=== PATIENT | male | born 1955 | race Caucasian/White ===

== ENCOUNTER → 2021-04-02 16:57 | Outpatient (BNVA) | payer MEDICARE, SELFPAY | PROVIDERS: Family Provider Family Medicine; PCP Family Medicine; Visit Provider Podiatrist Foot & Ankle Surgery | DX: L97.512 Non-pressure chronic ulcer of other part of right foot with fat layer exposed (principal); M20.41 Other hammer toe(s) (acquired), right foot; M20.42 Other hammer toe(s) (acquired), left foot; E11.42 Type 2 diabetes mellitus with diabetic polyneuropathy; Z79.4 Long term (current) use of insulin; L60.3 Nail dystrophy; L84 Corns and callosities; M21.861 Other specified acquired deformities of right lower leg; M20.31 Hallux varus (acquired), right foot; M20.32 Hallux varus (acquired), left foot | CPT/HCPCS: 87635 ==

== ENCOUNTER 2021-04-06 07:02 | Day surgery (SDC) | payer MEDICARE, SELFPAY ==
[2021-04-05 16:06] VITALS: BMI 37.5
[2021-04-06] VITALS (7 sets, daily range): BP systolic 92–153; BP diastolic 53–93; PULSE 48–58; RESP 16–18; TEMP 36.1–36.9; O2SAT 94–98
--- NOTE | 2021-04-06 08:06 | ANES.PREANE2 ---
Pre-Anesthetic Assessment Pre-Anesthetic Assessment: Height/Weight: Height 1.91 m Weight 136.078 kg Temp Pulse Resp BP Pulse Ox 98.4 F 52 L 18 153/83 96 04/06/21 07:25 04/06/21 07:25 04/06/21 07:25 04/06/21 07:25 04/06/21 07:25 Preop Diagnosis: Equinus, hammertoe and hallux malleus right Proposed Procedure: Operation Date: 04/06/21 08:20 Proposed Procedures p Gastrocnemius Recession 2nd/3rd right toes 44006/67917/39393/m20.41/m20.42/m20.32(Right) - MARIKA Marquez Hitchcock tendon suspension(Right) - MARIKA Marquez Hammertoe Correction(Right) - Willy Maradiaga DPM Was Beta Denise taken within 24 hours: Yes Was Clonidine taken within 24 hours: N/A Last intake: Intake Last Liquid Date 04/05/21 Last Liquid Time 23:55 Last Solid Date 04/05/21 Last Solid Time 20:00 Social: Social History: No alcohol and No tobacco Exam: Pre-Anes Outpt Exam: alert, oriented x 3, clear to auscultation bilaterally and regular rate & rhythm Airway: Submandibular: WNL Cervical ROM: WNL MP: 2 Dentition: Chipped Additional comments: Poor dentition, multiple cracked and chipped CV/HEM: CV/HEM: Arrythmia and HTN Metabolic: Metabolic: DM and Morbid obesity Musc/skel: Musc/skel: OA/DJD Comments: Chronic pain Anesthetic Plan: Anesthesia: MAC Other: Had discussed popliteal blk if gastoc recession necessary Risk of > 500 ml blood loss (7ml/kg in children): No PFSH Anesthesia PFSH: Medical History Amputation of fifth toe of left foot Diabetes mellitus Hammer toes, bilateral Surgical History Hx of amputation of foot Family History Mother Diabetes Hypertension Stroke Social History Alcohol intake: never Current occupational status: disabled Data Anesthesia Cardiac Studies: No Data to Display
--- NOTE | 2021-04-06 08:12 | P.HPUD_ITS ---
Surgery/Procedure H&P Update DATE OF PROCEDURE: April 06, 2021 DATE H&P PERFORMED: 04/02/21 H&P UPDATE INFORMATION: I have reviewed H&P completed within last 30 days, I have examined patient prior to procedure, No changes to prior documentation and H&P is in [facility] EMR on date indicated PREOP DIAGNOSIS: Equinus, hammertoe and hallux malleus right PLANNED PROCEDURE: Operation Date: 04/06/21 08:20 Proposed Procedures p Gastrocnemius Recession 2nd/3rd right toes 84198/40304/35201/m20.41/m20.42/m20.32(Right) - Willy Maradiaga DPM s Hitchcock tendon suspension(Right) - Willy Maradiaga DPM s Hammertoe Correction(Right) - Willy Maradiaga DPM
[2021-04-06] MEDS: sodium chloride 0.9% 1,000 ML 30 ML IV (08:18)
[2021-04-06] MEDS: scopolamine 1.5 Patch 1 PATCH TRANSDERMA (08:18)
[2021-04-06] MEDS: ceFAZolin 3,000 MG in sodium chloride 0.9% (100 ml) 100 ML 200 MG IV (08:24)
[2021-04-06 08:27] LABS: Glucose Point of Care 138 mg/dL (70-110)
[2021-04-06] MEDS: lidocaine 2% INJ 20 mL INJECTION (09:00)
--- NOTE | 2021-04-06 10:00 | P.OP_ITS ---
Operative Report Date of procedure: April 06, 2021 Pre-op Diagnosis: Hallux malleus and hammertoe deformities second and third right foot. Post-op diagnosis: same Procedure Done: Right hallux interphalangeal joint arthrodesis with extensor pollicis longus tendon transfer, right second and third hammertoe correction. CPT codes 28283 and 10793 x2 Implants: [place] 28 4 mm screw partially threaded and cannulated. [place] 28 4.5 mm interference screw, 2 mm screws for hammertoe second and third right foot, 4-0 Vicryl, 4-0 nylon. Specimens removed/disposition: None Pathology: none sent Surgeon: Willy Maradiaga D.P.M. Dental Hygienist: Johnny Anesthesia: MAC Estimated blood loss: 10 Tourniquet time: 73 IV fluids: None Urine output: None Complications: None Condition: stable Disposition: PACU Brief History: Patient has had recalcitrant hemorrhagic callus and wound formation at the right second hammertoe distal tuft of the toe due to nonreducible hammertoe deformity, hemorrhagic callus at the distal tuft of the right great toe and third toe would like to be proactive in getting the surgically corrected as he has had history of infections, partial amputation and would like to prevent future issues potentially by correcting his digital deformities on the right foot at this time. He has been wearing diabetic shoes with molded inserts, has been utilizing hammertoe cushion pads and continues to have reoccurring hemorrhagic calluses. Patient wishes to proceed. Has been n.p.o. since midnight, Covid screening negative. Risks include but are not limited to pain, bleeding, numbness, infection, hardware failure, hardware rotation, delayed union, malunion, nonunion, altered mechanics and need for further surgical intervention. No guarantees written, expressed or implied. Procedure: Under mild sedation the patient was brought to the operating room and remained on the gurney in supine position. A timeout was performed. Anesthesia was then administered by the anesthesia service. Local anesthesia injected by myself consisting of 30 cc of one-to-one mixture 0.5% Marcaine plain and 1% lidocaine plain in a right Woo block and second and third ray block fashions. Well-padded pneumatic tourniquet applied to the right ankle. Right lower extremity was then scrubbed, prepped and draped utilizing normal aseptic technique. Right foot was then exanguinated with an Esmarch bandage and a barbara rniquet inflated to 250 mmHg. Attention was directed to the right dorsal foot where a semielliptical converging incision was performed directly over the right hallux interphalangeal joint transversely with a skin bridge being excised and passed from operative field. Access was gained to the hallux interphalangeal joint utilizing a transverse capsulotomy and the base of the distal phalanx and head of the proximal phalanx were transected and passed from the operative field. Next utilizing standard AO technique a hallux interphalangeal arthrodesis was performed utilizing a 4.0 mm [place] 28 headed partially-threaded cannulated screw with excellent bony apposition and compression noted. Incision was flushed with saline solution and closed with 4-0 Vicryl at subcutaneous tissue and 4-0 nylon at skin. Attention was then directed to the metaphyseal flare of the first metatarsal where a linear longitudinal incision was made medial and parallel to the extensor houses longus tendon which was identified and retracted proximally, next utilizing a drill hole through the metaphyseal flare of the first metatarsal a whipstitch was performed of the extensor houses longus tendon and the Ángel needle utilized in the passage through the drill hole and interference screw under tension the extensor houses longus tendon was transferred to the first metatarsal completing a Hitchcock tenosuspension. When loading the first ray that was rectus with a correction of the hallux malleus and a rectus first metatarsophalangeal joint. Incision was flushed with saline solution and closed in a layered fashion with 4-0 Vicryl at subcutaneous tissue and 4-0 nylon at skin. Attention was then directed to the dorsal aspect of the second and third toes of the right foot where a linear longitudinal incisions were performed over the level of the proximal interphalangeal joint. Dissection was carried down through skin and subcutaneous tissue to the layer of the extensor tendon which was transected at the level of the proximal interphalangeal joint both at the second and third toes of the right foot. Care was taken to retract and preserve neurovascular and tendinous structures. All bleeders were ligated and cauterized as necessary. A interphalangeal joint arthrodesis was then performed at the right second and third toes, the head of the proximal phalanx and base of the intermediate phalanx were denuded of articular surface, held rectus and fixated utilizing antegrade and retrograde technique with a double-ended trocar wire and [place] 28 2 mm screw with excellent bony apposition and compression noted at the right second and third toes. Incisions were flushed with saline solution extensor tendons were then reapproximated at the right second and third toes utilizing 4-0 Vicryl and skin closed with 4-0 nylon. Incision sites were dressed with Adaptic, sterile 4 x 4, Kerlix and Suleiman wrap and a cam boot was applied. Tourniquet was deflated and a prompt hyperemic response was noted to the distal digits of the right foot. Patient tolerated the procedure and anesthesia well and was transferred to the PACU with vital signs stable and vascular status intact. Following a period of postoperative monitoring patient will be discharged home. He may be protected weightbearing in the cam boot he is to elevate right foot while resting. Has postoperative care instructions and follow-up. He will contact me with any postoperative questions or concerns and was provided my cell phone number.
--- NOTE | 2021-04-06 10:01 | XR_ITS ---
WS: [id number] Exam: XR foot RT min 3V* [id number] Date/Time of Exam: 04/06/2021 10:01 AM Reason For Exam: Postop Hitchcock and hammertoe 2 and 3 right foot Comparison 07/20/2018. Orthopedic screws course through the long axes of the first through the third toes. Postoperative adilia nges in the adjacent soft tissues. There is bony sclerosis and marked degenerative change of the midf oot joints with flattening of the plantar arch which may indicate Charcot's arthropathy. Prominent ca lcaneal spurs. DJD of the subtalar joints. XR/XR foot RT min 3V* [id number] IMPRESSION: 1. Internal orthopedic fixation of the first through the third toe secondary to hammertoe correction. Alignment is satisfactory. 2. Bony sclerosis and advanced degenerative changes in the midfoot joints with flattening of the plantar arch. This may represent Charcot's arthropathy.
[2021-04-06 10:12] LABS: Glucose Point of Care 111 mg/dL (70-110)
--- NOTE | 2021-04-06 14:34 | ANE.PACU2 ---
Inpatient post-anesthesia follow up: Airway intact: Yes Vital signs: Temperature 98.0 F Pulse Rate 58 Respiratory Rate 16 Blood Pressure 128/93 Pulse Oximetry 97 Oxygen Delivery Me thod Room Air Oxygen Flow Rate 6 Fraction of Inspir ed Oxygen Hydration adequate: Yes Nausea and vomiting: No Pain level: 1 Mental status: Baseline
== END 2021-04-06 11:40 | disposition home or self-care (01) ==
PROVIDERS: PCP Family Medicine; Visit Provider Podiatrist Foot & Ankle Surgery
PROC: (CPT 28285; 2021-04-06 08:10)
PROC: (CPT 28285; 2021-04-06 08:10)
DX: M20.31 Hallux varus (acquired), right foot (principal); M20.41 Other hammer toe(s) (acquired), right foot; I10 Essential (primary) hypertension; E11.9 Type 2 diabetes mellitus without complications; E66.01 Morbid (severe) obesity due to excess calories; Z68.37 Body mass index [BMI] 37.0-37.9, adult; G89.29 Other chronic pain; Z82.49 Family history of ischemic heart disease and other diseases of the circulatory system; Z83.3 Family history of diabetes mellitus; Z82.3 Family history of stroke
CPT/HCPCS: 28285 ×2; 28760; 36416; 73630; 82962; 96365; C1713; J0690; J2704; J2795; J3010; J3490; J7030

== ENCOUNTER → 2021-04-18 09:58 | Outpatient (BNVA) | payer MEDICARE, SELFPAY | PROVIDERS: PCP Family Medicine; Visit Provider Podiatrist Foot & Ankle Surgery | DX: Z98.890 Other specified postprocedural states (principal) | CPT/HCPCS: 73630 ==

== ENCOUNTER → 2021-05-03 07:57 | Outpatient (BNVA) | payer MEDICARE, SELFPAY | PROVIDERS: PCP Family Medicine; Visit Provider Podiatrist Foot & Ankle Surgery | DX: Z98.890 Other specified postprocedural states (principal) | CPT/HCPCS: 73630 ==

== ENCOUNTER → 2021-05-15 09:36 | Outpatient (BNVA) | payer MEDICARE, SELFPAY | PROVIDERS: PCP Family Medicine; Visit Provider Podiatrist Foot & Ankle Surgery | DX: Z98.890 Other specified postprocedural states (principal); T84.84XA Pain due to internal orthopedic prosthetic devices, implants and grafts, initial encounter; Z01.818 Encounter for other preprocedural examination | CPT/HCPCS: 73630; 87635 ==

== ENCOUNTER 2021-05-18 07:43 | Day surgery (SDC) | payer MEDICARE, SELFPAY ==
[2021-05-17 12:26] VITALS: BMI 37.6
--- NOTE | 2021-05-18 | SCC_ITS ---
Procedure done: Deep hardware removal right foot 5 seconds of fluoroscopic guidance, for a cumulative dose of 0.1 mGy, was provided to Dr. Maradiaga by the radiology department. C-arm images of the RIGHT foot were saved for the patient's permanent record. CHED
[2021-05-18 07:55] VITALS: BP 147/79; PULSE 51; RESP 17; TEMP 36.7; O2SAT 96
--- NOTE | 2021-05-18 08:16 | ECG_ITS ---
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 Measurements Intervals [place] Rate: 50 P: 32 MI: 261 QRS: -18 QRSD: 96 T: 41 QT: 498 QTc: 455 Interpretive Statements SINUS BRADYCARDIA WITH FIRST DEGREE AV BLOCK LOW QRS VOLTAGE IN PRECORDIAL LEADS [QRS DEFLECTION < 1.0 mV IN CHEST LEADS] PROLONGED QT INTERVAL No previous ECG available for comparison Electronically Signed On 05-19-2021 9:02:[address] REPOR[address] by Ashley Scott M.D. [id number]
[2021-05-18] MEDS: sodium chloride 0.9% 1,000 ML 30 ML IV (08:18)
[2021-05-18] MEDS: scopolamine 1.5 Patch 1 PATCH TRANSDERMA (08:57)
[2021-05-18 08:59] LABS: Anion Gap 18.6 (5-19); Blood Urea Nitrogen 21 mg/dL (8-23); Calcium 9.9 mg/dL (8.5-10.5); Carbon Dioxide 21 mmol/L (22-29); Chloride 106 mmol/L (98-107); Glomerular Filtration Rate 112.8 mL/min (90-130); Glucose 124 mg/dL (65-115); Osmolality Calculated 296 mOsm/kg (285-295); Potassium 4.6 mmol/L (3.5-5.1); Sodium 141 mmol/L (136-145)
--- NOTE | 2021-05-18 09:02 | W.PM.OPSUD ---
Surgery/Procedure H&P Update DATE OF PROCEDURE: May 18, 2021 DATE H&P PERFORMED: 05/15/21 CHANGES TO PREVIOUS DOCUMENTATION: none PREOP DIAGNOSIS: Hammertoe right second and third toe, painful retained hardware right foot. PLANNED PROCEDURE: Operation Date: 05/18/21 09:40 Proposed Procedures p Hardware Removal right foot 98936/T84.84XA(Right) - Willy Maradiaga DPM
[2021-05-18] MEDS: ceFAZolin 3,000 MG in sodium chloride 0.9% (100 ml) 100 ML 200 MG IV (09:13)
[2021-05-18] MEDS: lidocaine 1% INJ 20 mL 15 ML XX (09:40)
[2021-05-18 09:43] VITALS: BP 95/53; PULSE 56; RESP 18; TEMP 36.1; O2SAT 97
--- NOTE | 2021-05-18 09:43 | PM.OP ---
Operative Report Date of procedure: May 18, 2021 Pre-op diagnosis: Painful retained hardware right foot. Post-op diagnosis: Same Procedure done: Deep hardware removal right foot Specimens removed/disposition: 2.0 mm [place] 28 screw Surgeon: Willy Maradiaga D.P.M. Entry Level Accountant: Selene Estimated blood loss: Less than 5 5 IV fluids: 0 Urine output: 0 Complications: None Findings: None Brief History: Hardware failure and painful hardware at the right second toe requiring removal as it is tenting the skin and had a failed cortex dorsally at the distal phalanx. Also has bent hardware at the right third toe from contusion. Patient is neuropathic does not remember hitting his foot but states that it is possible. Plan is hardware removal at the right second toe and a straightening of the right third toe if possible should there be failure of hardware this would necessitate hardware removal and replacement. Patient is agreeable wishes to proceed. Risks include pain, bleeding, numbness, infection, hardware failure, hardware rotation, delayed union, malunion, nonunion, recurrence of deformity altered mechanics, transfer pressure and transfer lesions need for further surgical intervention. Covid screen negative. Patient n.p.o. since midnight. Informed consent signed by patient and myself. No guarantees written, expressed or implied. Patient wishes to proceed. Procedure: Under mild sedation the patient was brought to the operating room and remained on the gurney in supine position. A timeout was performed. Anesthesia was then administered by the anesthesia service. Local anesthesia injected by myself consisting of 20 cc of one-to-one mixture 1% lidocaine 0.5% Marcaine plain and a right second and third ray block fashion. Well-padded pneumatic tourniquet applied to the high calf of the right lower extremity followed by the right lower extremity being scrubbed, prepped and draped utilizing normal aseptic technique. Right foot was exanguinated with an Esmarch bandage and a tourniquet inflated to 250 mmHg. Attention was directed to the distal right second toe where a incision was made over the head of the hardware this was a 2.0 mm [place] 28 screw. This was removed and passed from operative field followed by flush with saline solution and closure with 4-0 nylon. Attention was then was directed to the right third toe and manually the right third toe was improved in its position. No hardware failure appreciated. Incision site was dressed with Adaptic, sterile 4 x 4, Kerlix and Suleiman wrap. Postop shoe was applied. Tourniquet was deflated and a prompt hyperemic response is noted to the distal digits of the right foot. Patient tolerated the procedure and anesthesia well and was transferred to the PACU with vital signs stable vascular status intact. Following a period of postop monitoring he will be discharged home is to be wearing the cam boot or postop shoe at all times will follow up in podiatry clinic.
[2021-05-18 09:50] VITALS: BP 144/70; PULSE 56; RESP 18; TEMP 36.1; O2SAT 96
--- NOTE | 2021-05-18 09:50 | ANES.PREANE2 ---
Pre-Anesthetic Assessment Height/Weight: Height 1.91 m Weight 136.531 kg Temp Pulse Resp BP Pulse Ox 97.0 F L 56 L 18 95/53 97 05/18/21 09:43 05/18/21 09:43 05/18/21 09:43 05/18/21 09:43 05/18/21 09:43 Preop Diagnosis: Hammertoe right second and third toe, painful retained hardware right foot. Operation Date: 05/18/21 09:40 Proposed Procedures p Hardware Removal right foot 24820/T84.84XA(Right) - Willy Maradiaga DPM Familial anesthetic complications: None Was Beta Denise taken within 24 hours: Yes Was Clonidine taken within 24 hours: N/A Last intake: Intake Last Liquid Date 05/17/21 Last Liquid Time 22:00 Last Solid Date 05/17/21 Last Solid Time 22:00 Social No alcohol and No tobacco Exam alert, oriented x 3, clear to auscultation bilaterally and regular rate & rhythm Airway Submandibular: within normal limits Cervical ROM: within normal limits Mallampati: Class II Dentition: chipped Comments: Comments: Poor dentition, crisostomo CV/HEM Hypertension Metabolic Morbid Obesity Anesthetic Plan ASA status: 3 Anesthesia: Choice Medications/Allergies Home Medications Medication Instructions Recorded Confirmed Last Taken Type lisinopril 20 mg tablet 20 mg PO DAILY 10/05/19 05/18/21 05/17/21 History multivitamin 1 tab PO DAILY 10/05/19 05/18/21 05/17/21 History DIABETIC SHOES #1 ea 04/24/20 05/15/21 Unknown Rx acetaminophen 500 mg tablet 500 mg PO Q6H PRN 04/05/21 05/18/21 05/17/21 History gemfibrozil 600 mg tablet 600 mg PO BID 04/06/21 05/18/21 05/17/21 History doxycycline hyclate 100 mg capsule 100 mg PO BID 14 Days #28 cap 05/15/21 05/18/21 05/18/21 Rx gabapentin 300 mg tablet 300 mg PO TID 05/17/21 05/18/21 05/17/21 History insulin NPH-regular 70-30 U-100 55 unit SUBCUT BID 05/17/21 05/18/21 05/17/21 History insulin 100 unit/mL subcutaneous pen metoprolol tartrate 50 mg tablet 50 mg PO BID 05/17/21 05/18/21 05/18/21 History tramadol 50 mg tablet 50 mg PO Q6H PRN 05/17/21 05/18/21 05/17/21 History Allergies Allergy/AdvReac Type Severity Reaction Status Date / Time furosemide [From Lasix] Allergy Unknown unknown Verified 05/17/21 12:19 Current Medications Generic Name Dose Route Start Last Admin Trade Name Freq PRN Reason Stop Dose Admin Sodium Chloride 1,000 mls @ 30 mls/hr 05/18/21 08:00 05/18/21 08:18 Sodium Chloride 0.9% IV 05/19/21 07:59 30 mls/hr .Q24H DEL Administration PFSH Anesthesia Medical History Amputation of fifth toe of left foot Diabetes mellitus Hammer toes, bilateral Surgical History Hx of amputation of foot Family History Mother Diabetes Hypertension Stroke Social History Smoking and tobacco status: never smoked Alcohol intake: never Current occupational status: disabled Data Anesthesia : 05/18/21 08:20 BMP 05/18/21 08:20 Sodium 141 Potassium 4.6 Chloride 106 Carbon Dioxide 21 L BUN 21 Creatinine 0.7 Glucose 124 H Calcium 9.9 Cardiac Studies: No Data to Display
--- NOTE | 2021-05-18 09:54 | XR_ITS ---
WS: [id number] Right foot, 2 views, 05/18/2021 Clinical Data: post op Comparison: Right foot, 05/15/2021. Findings: The arthrodesis pin in the right second toe has been removed. There is an arthrodesis of the right fi rst toe and the right third toe with a bend at the midportion of the right third toe pin. The foot is flat. There are plantar spurs and Achilles spurs. There is osteoarthritis of the bases of the metatarsals and all the tarsal bones. Soft tissue swelling about the foot is noted. XR/XR foot RT 2V [id number] Impression: 1. Removal of pin from right second toe. 2. No change in arthrodesis of the right first and third toes. 3. Soft tissue swelling, foot flattening and osteoarthritis remain the same.
[2021-05-18 10:13] VITALS: BP 142/86; PULSE 57; RESP 18; TEMP 36.2; O2SAT 96
[2021-05-18 12:40] LABS: Glucose Point of Care 111 mg/dL (70-110)
--- NOTE | 2021-05-18 16:19 | ANE.PACU2 ---
Inpatient post-anesthesia follow up: Airway intact: Yes Vital signs: Temperature 97.1 F Pulse Rate 57 Respiratory Rate 18 Blood Pressure 142/86 Pulse Oximetry 96 Oxygen Delivery Me thod Room Air Oxygen Flow Rate Fraction of Inspir ed Oxygen Hydration adequate: Yes Nausea and vomiting: No Pain level: 1 Mental status: Baseline
== END 2021-05-18 10:26 | disposition home or self-care (01) ==
PROVIDERS: Anesthesiology; PCP Family Medicine; Visit Provider Podiatrist Foot & Ankle Surgery
PROC: (CPT 20680; principal; 2021-05-18 09:30)
DX: T84.84XA Pain due to internal orthopedic prosthetic devices, implants and grafts, initial encounter (principal); I10 Essential (primary) hypertension; E66.01 Morbid (severe) obesity due to excess calories; Z68.37 Body mass index [BMI] 37.0-37.9, adult; E11.9 Type 2 diabetes mellitus without complications; Z79.4 Long term (current) use of insulin
CPT/HCPCS: 20680; 36415; 36416; 73620; 76000; 80048; 82962; 93005; J0690; J2704; J3010; J3490; J7030

== ENCOUNTER → 2021-06-01 13:35 | Outpatient (BNVA) | payer MEDICARE, SELFPAY | PROVIDERS: PCP Family Medicine; Visit Provider Podiatrist Foot & Ankle Surgery | DX: Z98.890 Other specified postprocedural states (principal) | CPT/HCPCS: 73630 ==

== ENCOUNTER → 2021-06-28 14:30 | Outpatient (BNVA) | payer MEDICARE, SELFPAY | PROVIDERS: PCP Family Medicine; Visit Provider Podiatrist Foot & Ankle Surgery | DX: L60.3 Nail dystrophy (principal); L84 Corns and callosities; M21.861 Other specified acquired deformities of right lower leg; M20.31 Hallux varus (acquired), right foot; M20.32 Hallux varus (acquired), left foot; E11.42 Type 2 diabetes mellitus with diabetic polyneuropathy; M20.41 Other hammer toe(s) (acquired), right foot; M20.42 Other hammer toe(s) (acquired), left foot; Z98.890 Other specified postprocedural states | CPT/HCPCS: 73630 ==

== ENCOUNTER → 2021-08-08 08:35 | Outpatient (BNVA) | payer MEDICARE, SELFPAY | PROVIDERS: PCP Family Medicine; Visit Provider Podiatrist Foot & Ankle Surgery | DX: Z98.890 Other specified postprocedural states (principal); L60.3 Nail dystrophy; L84 Corns and callosities; M21.861 Other specified acquired deformities of right lower leg; M20.31 Hallux varus (acquired), right foot; M20.32 Hallux varus (acquired), left foot; E11.42 Type 2 diabetes mellitus with diabetic polyneuropathy; M20.41 Other hammer toe(s) (acquired), right foot; M20.42 Other hammer toe(s) (acquired), left foot | CPT/HCPCS: 73630 ==

== ENCOUNTER → 2021-10-09 08:56 | Outpatient (BNVA) | payer MEDICARE, SELFPAY | PROVIDERS: PCP Family Medicine; Visit Provider Podiatrist Foot & Ankle Surgery | DX: L60.3 Nail dystrophy (principal); L84 Corns and callosities; E11.42 Type 2 diabetes mellitus with diabetic polyneuropathy; Z79.4 Long term (current) use of insulin; Z89.422 Acquired absence of other left toe(s) | CPT/HCPCS: 11056; 11721 ==

== ENCOUNTER → 2021-12-11 08:43 | Outpatient (BNVA) | payer MEDICARE, SELFPAY | PROVIDERS: PCP Family Medicine; Visit Provider Podiatrist Foot & Ankle Surgery | DX: M21.41 Flat foot [pes planus] (acquired), right foot (principal); M21.42 Flat foot [pes planus] (acquired), left foot; E11.42 Type 2 diabetes mellitus with diabetic polyneuropathy; Z79.4 Long term (current) use of insulin | CPT/HCPCS: 99213; 99214 ==

== ENCOUNTER → 2022-02-12 09:25 | Outpatient (BNVA) | payer MEDICARE, SELFPAY | PROVIDERS: PCP Family Medicine; Visit Provider Podiatrist Foot & Ankle Surgery | DX: E11.42 Type 2 diabetes mellitus with diabetic polyneuropathy (principal); L84 Corns and callosities; L60.3 Nail dystrophy; Z89.422 Acquired absence of other left toe(s); Z79.4 Long term (current) use of insulin | CPT/HCPCS: 11056; 11721 ==

== ENCOUNTER → 2022-04-02 09:43 | Outpatient (BNVA) | payer MEDICARE, SELFPAY | PROVIDERS: PCP Family Medicine; Visit Provider Podiatrist Foot & Ankle Surgery | DX: E11.42 Type 2 diabetes mellitus with diabetic polyneuropathy (principal); M21.41 Flat foot [pes planus] (acquired), right foot; M21.42 Flat foot [pes planus] (acquired), left foot; M20.31 Hallux varus (acquired), right foot; M20.32 Hallux varus (acquired), left foot; L84 Corns and callosities; L60.3 Nail dystrophy; M20.41 Other hammer toe(s) (acquired), right foot; M20.42 Other hammer toe(s) (acquired), left foot; M25.871 Other specified joint disorders, right ankle and foot; Z79.4 Long term (current) use of insulin | CPT/HCPCS: 73610 ==

== ENCOUNTER 2022-04-02 10:43 | Outpatient (CLI) | payer MEDICARE, SELFPAY | END 2022-04-02 10:44 | disposition home or self-care (01) | LOC: SPT 10:43 | PROVIDERS: PCP Family Medicine; Visit Provider Podiatrist Foot & Ankle Surgery | DX: Z46.89 Encounter for fitting and adjustment of other specified devices (principal); M25.871 Other specified joint disorders, right ankle and foot; E11.42 Type 2 diabetes mellitus with diabetic polyneuropathy; M21.41 Flat foot [pes planus] (acquired), right foot; M21.42 Flat foot [pes planus] (acquired), left foot; M20.31 Hallux varus (acquired), right foot; M20.32 Hallux varus (acquired), left foot; L84 Corns and callosities; L60.3 Nail dystrophy; M20.41 Other hammer toe(s) (acquired), right foot; M20.42 Other hammer toe(s) (acquired), left foot; Z79.4 Long term (current) use of insulin | CPT/HCPCS: 11056; 11721; 97760; 99214; L1902 ==

== ENCOUNTER → 2022-06-18 08:47 | Outpatient (BNVA) | payer MEDICARE, SELFPAY | PROVIDERS: PCP Family Medicine; Visit Provider Podiatrist Foot & Ankle Surgery | DX: E11.42 Type 2 diabetes mellitus with diabetic polyneuropathy (principal); M21.41 Flat foot [pes planus] (acquired), right foot; M21.42 Flat foot [pes planus] (acquired), left foot; M20.31 Hallux varus (acquired), right foot; M20.32 Hallux varus (acquired), left foot; L84 Corns and callosities; L60.3 Nail dystrophy; M25.871 Other specified joint disorders, right ankle and foot | CPT/HCPCS: 11056; 11721 ==

== ENCOUNTER → 2022-08-20 09:19 | Outpatient (BNVA) | payer MEDICARE, SELFPAY | PROVIDERS: PCP Family Medicine; Visit Provider Podiatrist Foot & Ankle Surgery | DX: E11.42 Type 2 diabetes mellitus with diabetic polyneuropathy (principal); L60.3 Nail dystrophy; L84 Corns and callosities; M20.41 Other hammer toe(s) (acquired), right foot; M20.42 Other hammer toe(s) (acquired), left foot; M20.31 Hallux varus (acquired), right foot; M20.32 Hallux varus (acquired), left foot; M21.41 Flat foot [pes planus] (acquired), right foot; M21.42 Flat foot [pes planus] (acquired), left foot; Z79.4 Long term (current) use of insulin | CPT/HCPCS: 11056; 11721 ==

== ENCOUNTER → 2022-10-22 08:59 | Outpatient (BNVA) | payer MEDICARE, SELFPAY | PROVIDERS: PCP Family Medicine; Visit Provider Podiatrist Foot & Ankle Surgery | DX: M21.41 Flat foot [pes planus] (acquired), right foot (principal); M21.42 Flat foot [pes planus] (acquired), left foot; E11.42 Type 2 diabetes mellitus with diabetic polyneuropathy; M20.31 Hallux varus (acquired), right foot; M20.32 Hallux varus (acquired), left foot; L84 Corns and callosities; L60.3 Nail dystrophy; M20.41 Other hammer toe(s) (acquired), right foot; M20.42 Other hammer toe(s) (acquired), left foot; Z79.4 Long term (current) use of insulin | CPT/HCPCS: 11055; 11721 ==

== ENCOUNTER → 2022-12-10 07:20 | Outpatient (BNVA) | payer MEDICARE, SELFPAY | PROVIDERS: PCP Family Medicine; Visit Provider Podiatrist Foot & Ankle Surgery | DX: E11.42 Type 2 diabetes mellitus with diabetic polyneuropathy; L84 Corns and callosities; L60.3 Nail dystrophy; M21.41 Flat foot [pes planus] (acquired), right foot; M21.42 Flat foot [pes planus] (acquired), left foot; M20.31 Hallux varus (acquired), right foot; M20.32 Hallux varus (acquired), left foot; M20.41 Other hammer toe(s) (acquired), right foot; M20.42 Other hammer toe(s) (acquired), left foot | CPT/HCPCS: 11056; 11721 ==

== ENCOUNTER → 2023-01-22 07:54 | Outpatient (BNVA) | payer MEDICARE, SELFPAY | PROVIDERS: PCP Family Medicine; Visit Provider Thoracic Surgery (Cardiothoracic Vascular Surgery) | DX: E11.52 Type 2 diabetes mellitus with diabetic peripheral angiopathy with gangrene (principal); E11.622 Type 2 diabetes mellitus with other skin ulcer; L97.811 Non-pressure chronic ulcer of other part of right lower leg limited to breakdown of skin | CPT/HCPCS: 11042; 97597; 97598; 99213; A6212 ==

== ENCOUNTER → 2023-01-29 08:35 | Outpatient (BNVA) | payer MEDICARE, SELFPAY | PROVIDERS: PCP Family Medicine; Visit Provider Thoracic Surgery (Cardiothoracic Vascular Surgery) | DX: E11.52 Type 2 diabetes mellitus with diabetic peripheral angiopathy with gangrene (principal); E11.622 Type 2 diabetes mellitus with other skin ulcer; L97.812 Non-pressure chronic ulcer of other part of right lower leg with fat layer exposed | CPT/HCPCS: 11042; 97597; 97598 ==

== ENCOUNTER → 2023-02-11 09:07 | Outpatient (BNVA) | payer MEDICARE, SELFPAY | PROVIDERS: PCP Family Medicine; Visit Provider Podiatrist Foot & Ankle Surgery | DX: E11.42 Type 2 diabetes mellitus with diabetic polyneuropathy; L84 Corns and callosities; L60.3 Nail dystrophy; Z89.422 Acquired absence of other left toe(s); Z79.4 Long term (current) use of insulin | CPT/HCPCS: 11056; 11721 ==

== ENCOUNTER → 2023-02-12 08:09 | Outpatient (BNVA) | payer MEDICARE, SELFPAY | PROVIDERS: PCP Family Medicine; Visit Provider Nurse Practitioner Family | DX: E11.52 Type 2 diabetes mellitus with diabetic peripheral angiopathy with gangrene (principal); E11.622 Type 2 diabetes mellitus with other skin ulcer; L97.811 Non-pressure chronic ulcer of other part of right lower leg limited to breakdown of skin | CPT/HCPCS: 97597; A6212 ×2 ==

== ENCOUNTER → 2023-02-19 08:04 | Outpatient (BNVA) | payer MEDICARE, SELFPAY | PROVIDERS: PCP Family Medicine; Visit Provider Thoracic Surgery (Cardiothoracic Vascular Surgery) | DX: E11.52 Type 2 diabetes mellitus with diabetic peripheral angiopathy with gangrene (principal); E11.622 Type 2 diabetes mellitus with other skin ulcer; L97.811 Non-pressure chronic ulcer of other part of right lower leg limited to breakdown of skin | CPT/HCPCS: 97597; A6212 ×2 ==

== ENCOUNTER → 2023-02-26 07:54 | Outpatient (BNVA) | payer MEDICARE, SELFPAY | PROVIDERS: PCP Family Medicine; Visit Provider Thoracic Surgery (Cardiothoracic Vascular Surgery) | DX: E11.52 Type 2 diabetes mellitus with diabetic peripheral angiopathy with gangrene (principal); E11.622 Type 2 diabetes mellitus with other skin ulcer; L97.811 Non-pressure chronic ulcer of other part of right lower leg limited to breakdown of skin | CPT/HCPCS: 97597; A6219 ==

== ENCOUNTER → 2023-03-05 07:57 | Outpatient (BNVA) | payer MEDICARE, SELFPAY | PROVIDERS: PCP Family Medicine; Visit Provider Thoracic Surgery (Cardiothoracic Vascular Surgery) | DX: E11.52 Type 2 diabetes mellitus with diabetic peripheral angiopathy with gangrene (principal); E11.622 Type 2 diabetes mellitus with other skin ulcer; L97.811 Non-pressure chronic ulcer of other part of right lower leg limited to breakdown of skin; Z09 Encounter for follow-up examination after completed treatment for conditions other than malignant neoplasm | CPT/HCPCS: 97597 ==

== ENCOUNTER → 2023-03-12 08:00 | Outpatient (BNVA) | payer MEDICARE, SELFPAY | PROVIDERS: PCP Family Medicine; Visit Provider Nurse Practitioner Family | DX: Z09 Encounter for follow-up examination after completed treatment for conditions other than malignant neoplasm (principal); Z87.2 Personal history of diseases of the skin and subcutaneous tissue | CPT/HCPCS: 99212 ==

== ENCOUNTER → 2023-06-03 08:51 | Outpatient (BNVA) | payer MEDICARE, SELFPAY | PROVIDERS: PCP Family Medicine; Visit Provider Podiatrist Foot & Ankle Surgery | DX: S98.132A Complete traumatic amputation of one left lesser toe, initial encounter (principal); L84 Corns and callosities; L60.3 Nail dystrophy; M20.41 Other hammer toe(s) (acquired), right foot; M20.42 Other hammer toe(s) (acquired), left foot; E11.42 Type 2 diabetes mellitus with diabetic polyneuropathy; Z79.4 Long term (current) use of insulin; X58.XXXA Exposure to other specified factors, initial encounter | CPT/HCPCS: 11056; 11721 ==

== ENCOUNTER → 2023-08-26 08:54 | Outpatient (BNVA) | payer MEDICARE, SELFPAY | PROVIDERS: PCP Family Medicine; Visit Provider Podiatrist Foot & Ankle Surgery | DX: L84 Corns and callosities; L60.3 Nail dystrophy; E11.42 Type 2 diabetes mellitus with diabetic polyneuropathy; Z89.422 Acquired absence of other left toe(s); Z79.4 Long term (current) use of insulin | CPT/HCPCS: 11056; 11721 ==

== ENCOUNTER → 2023-12-02 09:57 | Outpatient (BNVA) | payer MEDICARE, SELFPAY | PROVIDERS: PCP Family Medicine; Visit Provider Podiatrist Foot & Ankle Surgery | DX: L84 Corns and callosities; L60.3 Nail dystrophy; E11.42 Type 2 diabetes mellitus with diabetic polyneuropathy; L97.521 Non-pressure chronic ulcer of other part of left foot limited to breakdown of skin; Z89.422 Acquired absence of other left toe(s); E11.621 Type 2 diabetes mellitus with foot ulcer; Z79.4 Long term (current) use of insulin | CPT/HCPCS: 11056; 11721; 99213 ==

== ENCOUNTER → 2023-12-23 14:55 | Outpatient (BNVA) | payer MEDICARE, SELFPAY | PROVIDERS: PCP Family Medicine; Visit Provider Podiatrist Foot & Ankle Surgery | DX: E11.42 Type 2 diabetes mellitus with diabetic polyneuropathy; L97.521 Non-pressure chronic ulcer of other part of left foot limited to breakdown of skin; E11.621 Type 2 diabetes mellitus with foot ulcer; Z79.84 Long term (current) use of oral hypoglycemic drugs; Z89.422 Acquired absence of other left toe(s) | CPT/HCPCS: 99213 ==

== ENCOUNTER → 2024-01-20 15:16 | Outpatient (BNVA) | payer MEDICARE, SELFPAY | PROVIDERS: PCP Family Medicine; Visit Provider Podiatrist Foot & Ankle Surgery | DX: E11.621 Type 2 diabetes mellitus with foot ulcer; L97.521 Non-pressure chronic ulcer of other part of left foot limited to breakdown of skin; E11.42 Type 2 diabetes mellitus with diabetic polyneuropathy; L97.511 Non-pressure chronic ulcer of other part of right foot limited to breakdown of skin; Z89.422 Acquired absence of other left toe(s); Z79.4 Long term (current) use of insulin | CPT/HCPCS: 99213 ==

== ENCOUNTER → 2024-02-17 08:00 | Outpatient (BNVA) | payer MEDICARE, SELFPAY | PROVIDERS: PCP Family Medicine; Visit Provider Podiatrist Foot & Ankle Surgery | DX: L97.521 Non-pressure chronic ulcer of other part of left foot limited to breakdown of skin; L97.511 Non-pressure chronic ulcer of other part of right foot limited to breakdown of skin; E11.42 Type 2 diabetes mellitus with diabetic polyneuropathy; E11.621 Type 2 diabetes mellitus with foot ulcer; Z89.222 Acquired absence of left upper limb above elbow; Z79.4 Long term (current) use of insulin | CPT/HCPCS: 99213 ==

== ENCOUNTER 2024-05-30 20:00 | Inpatient (IN) | payer MEDICARE, SELFPAY ==
--- NOTE | 2024-05-30 20:05 | XRR_ITS ---
PROCEDURE INFORMATION: Exam: XR Chest Exam date and time: 05/30/2024 9:20 PM Age: 69 years old Clinical indication: Shortness of breath TECHNIQUE: Imaging protocol: Radiologic exam of the chest. Views: 1 view. COMPARISON: CR XR shoulder LT min 2V* [id number] 05/13/2018 6:32 PM FINDINGS: Lungs: Unremarkable. No consolidation. Pleural spaces: Unremarkable. No pleural effusion. No pneumothorax. Heart/Mediastinum: Unremarkable. No cardiomegaly. Bones/joints: Unremarkable. XR/XR chest 1V portable [id number] IMPRESSION: No acute findings.
[2024-05-30 20:41] VITALS: BP 128/70; PULSE 109; RESP 18; TEMP 37.6; O2SAT 94
[2024-05-30 20:44] LABS: Glucose Point of Care 243 mg/dL (70-110)
[2024-05-30 20:45] VITALS: BP 159/111; PULSE 101; O2SAT 94
[2024-05-30 20:51] LABS: Basophils % 0.1 %; Eosinophils % 0.1 %; Hematocrit 46.4 % (37-53); Lymphocytes # 0.2 10^3/uL (0.8-4.8); Lymphocytes % 2.6 %; Mean Corpuscular HGB Conc 32.5 g/dL (30-55); Mean Corpuscular Hemoglobin 29.8 pg (27-33); Mean Corpuscular Volume 91.5 fl (82-101); Mean Platelet Volume 10.3 fL (7.4-10.4); Monocytes # 0.6 10^3/uL (0.2-0.9); Monocytes % 7.8 %; Neutrophils # 6.41 10^3/uL (1.8-7.7); Nucleated Red Blood Cells % 0 %; Platelet Count 213 10^3/cmm (157-399); Red Blood Count 5.07 10^6/uL (3.85-5.65); Red Cell Distribution Width 12.9 % (12.1-15.1); White Blood Count 7.21 10^3/uL (3.29-11.43)
[2024-05-30 21:10] LABS: Lactic Sepsis W/Reflex 2.8 mmol/L (0.5-2.2)
[2024-05-30 21:21] LABS: Alanine Aminotransferase 17 U/L (0-41); Albumin Level 3.8 g/dL (3.5-5.2); Alkaline Phosphatase 96 U/L (40-130); Anion Gap 16.7 (5-19); Aspartate Amino Transferase 26 U/L (0-40); Blood Urea Nitrogen 12 mg/dL (8-23); C Reactive Protein 31.5 mg/L (0.0-4.9); Carbon Dioxide 22 mmol/L (22-29); Chloride 102 mmol/L (98-107); Creatinine Clr Calc Pharmacy 100.0926; Globulin 3.4 g/dL (1.3-4.6); Glomerular Filtration Rate 74.1 mL/min (90-130); Glucose 267 mg/dL (65-115); NT Pro B Type Natriuretic Pept 5296 pg/mL (0-125); Osmolality Calculated 293 mOsm/kg (285-295); Potassium 3.7 mmol/L (3.5-5.1); Sodium 137 mmol/L (136-145); Total Bilirubin 0.7 mg/dL (0.15-1.2); Total Protein 7.2 g/dL (6.6-8.7)
[2024-05-30 21:26] LABS: Reflex Lactate Order REFLEX LACTIC ORDERD
[2024-05-30 21:27] LABS: Influenza A POSITIVE (Negative); Influenza B NEGATIVE (Negative); Respiratory Syncytial Virus Ce NEGATIVE (Negative); SARS-CoV-2 PCR NEGATIVE (Negative)
[2024-05-30 21:45] VITALS: BP 108/84; PULSE 114; O2SAT 93
--- NOTE | 2024-05-30 22:00 | W.ED.URI ---
HPI - URI/Sore Throat General: Chief Complaint: Upper Respiratory Infection Stated Complaint: confusion, cough, congestion Time Seen by Provider: 05/30/24 21:31 History of Present Illness: Patient is a 69-year-old male presenting to the ED with altered mental status, accompanied by his mother. Per family, patient has been experiencing cough and congestion for 3-4 days with significant voice changes. Patient has become increasingly confused and is unable to maintain coherent conversation for more than 30 seconds. Family reports patient has been living with his ex- for the past two months. Recent episode of falling was noted. Patient has demonstrated progressive cognitive decline over the past few years since turning 70, with symptoms suggesting possible dementia. Past Medical History: Significant for cardiomyopathy (ejection fraction unknown) and diabetes. Patient reportedly has tolerated his cardiac condition well with minimal interventions. Recent History: Patient was reportedly diagnosed with a viral illness at a walk-in clinic by Dr. Wyatt Posadas. COVID test was negative, but flu testing was apparently not performed. Mother reports patient was 'really sick with the flu' in the first two days but maintained normal mental status until today's deterioration. Related Data Home Medications ?Medication ?Instructions ?Recorded ?Confirmed lisinopril 20 mg tablet 20 mg PO DAILY 10/05/19 02/17/24 multivitamin 1 tab PO DAILY 10/05/19 02/17/24 acetaminophen 500 mg tablet 500 mg PO Q6H PRN Pain 04/05/21 02/17/24 gemfibrozil 600 mg tablet 600 mg PO BID 04/06/21 02/17/24 gabapentin 300 mg tablet 300 mg PO TID 05/17/21 02/17/24 insulin NPH-regular 70-30 U-100 55 unit SUBCUT BID 05/17/21 02/17/24 insulin 100 unit/mL subcutaneous pen metoprolol tartrate 50 mg tablet 50 mg PO BID 05/17/21 02/17/24 tramadol 50 mg tablet 50 mg PO Q6H PRN Pain 05/17/21 02/17/24 Previous Rx's ?Medication ?Instructions ?Recorded hydrocodone 5 mg-acetaminophen 325 1 tab PO Q6H PRN pain 7 days #28 05/25/21 mg tablet tabs Custom Molded Accomadative #1 ea 11/14/21 Orthotics AFO to right #1 ea 04/02/22 supinator to right #1 ea 04/02/22 diabetic shoes with 3 sets of #1 ea 06/03/23 custom inserts mupirocin 2 % topical ointment 1 applic topical TID #15 grams 01/20/24 Allergies Allergy/AdvReac Type Severity Reaction Status Date / Time furosemide (From Lasix) Allergy Unknown unknown Verified 05/30/24 20:46 PFSH ED PFSH: Medical History Diabetes mellitus Hammer toes, bilateral Amputation of fifth toe of left foot Surgical History Hx of amputation of foot Family History Mother Diabetes Hypertension Stroke Social History Smoking and tobacco/nicotine status: unknown if used tobacco/nicotine Alcohol intake: never Substance/Drug Use: never Current occupational status: disabled Physical Exam Const: COMMON NORMALS: no acute distress HENMT: COMMON NORMALS: normocephalic HEAD & SCALP: normocephalic Eye: COMMON NORMALS: Equal, round and reactive pupils present, EOMs intact bilaterally and conjunctivae normal CONJUNCTIVA: Yes conjunctivae normal PUPIL: Yes Equal, round and reactive pupils present Neck/C-Spine: COMMON NORMALS: full ROM, no lymphadenopathy, supple, no meningeal signs, no JVD and Thyroid normal THYROID: Thyroid normal Chest: COMMONS NORMALS: normal inspection of the chest and normal palpation of entire chest wall Resp: COMMON NORMALS: normal respiratory effort, No retractions, No use of accessory muscles, clear to auscultation bilaterally and percussion normal AUSCULTATION: clear to auscultation bilaterally PERCUSSION: percussion normal Cardio: COMMON NORMALS: no JVD GI: COMMON NORMALS: Normal to inspection, nondistended, normoactive bowel sounds present, Soft to palpation, non-tender, No hepatosplenomegaly present, no masses and no bruits PALPATION: Yes Soft to palpation and Yes No hepatosplenomegaly present : COMMON NORMALS: Yes no CVA tenderness BLADDER/KIDNEY EXAM: Yes no CVA tenderness Back/Pelvis: COMMON NORMALS: no CVA tenderness Extremity: COMMON NORMALS: normal to inspection, full ROM, capillary refill normal, no joint enlargement, no clubbing, cyanosis or edema, no calf tenderness and no pedal edema Neuro: MENINGEAL SIGNS: Yes no meningeal signs Skin: COMMON NORMALS: no rashes or lesions noted, turgor normal and no jaundice GENERAL SKIN EXAM: no rashes or lesions noted and turgor normal Course Vital Signs: Vital signs: Vital Signs Temperature 99.6 F 05/30/24 20:41 Pulse Rate 98 05/31/24 00:30 Respiratory Rate 12 05/31/24 00:30 Blood Pressure 122/80 05/31/24 00:15 Pulse Oximetry 93 05/31/24 00:30 Oxygen Delivery Me thod Room Air 05/30/24 20:41 MDM - URI/Sore Throat Medical Decision Making 1. Altered Mental Status: - Likely multifactorial etiology including possible: * Acute delirium secondary to viral illness * Underlying cognitive decline/dementia * Need to rule out metabolic derangements, especially given history of diabetes - Plan: Admit to hospital for further evaluation and management 2. Suspected Influenza-like Illness: - Clinical presentation suggests possible influenza - Plan: * Obtain influenza testing * Monitor respiratory status 3. Cardiomyopathy: - Stable per history but requires monitoring during acute illness. Will hold on fluids currently. - Plan: Obtain baseline cardiac workup including ejection fraction assessment Lab Data 05/30/24 20:38 05/30/24 20:38 Radiology Impressions Chest X-Ray 05/30/24 20:05 IMPRESSION: No acute findings. Head CT 05/30/24 22:06 IMPRESSION: 1. Image quality is suboptimal at the level of the ventricles secondary to motion artifact. 2. Allowing for limitations, no distinct evidence of acute intracranial pathology. Laboratory Results WBC 7.21 10^3/uL (3.29-11.43) 05/30/24 20:38 RBC 5.07 10^6/uL (3.85-5.65) 05/30/24 20:38 Hgb 15.10 g/dL (11.27-16.99) 05/30/24 20:38 Hct 46.4 % (37-53) 05/30/24 20:38 MCV 91.5 fl (82-101) 05/30/24 20:38 MCH 29.8 pg (27-33) 05/30/24 20:38 MCHC 32.5 g/dL (30-55) 05/30/24 20: RDW 12.9 % (12.1-15.1) 05/30/24 20: Plt Count 213 10^3/cmm (157-399) 05/30/24 20: MPV 10.3 fL (7.4-10.4) 05/30/24 20: Neut % (Auto) 89.0 % 05/30/24: Lymph % (Auto) 2.6 % 05/30/24 20: [place] % (Auto) 7.8 % 05/30/24: Eos % (Auto) 0.1 % 05/30/24: Baso % (Auto) 0.1 % 05/30/24: Neut # (Auto) 6.41 10^3/uL (1.8-7.7) 05/30/24 20: Lymph # (Auto) 0.2 10^3/uL (0.8-4.8) L 05/30/24 20: [place] # (Auto) 0.6 10^3/uL (0.2-0.9) 05/30/24 20: Eos # (Auto) 0.0 10^3/uL (0.0-0.8) 05/30/24: Baso # (Auto) 0.0 10^3/uL (0.0-0.1) 05/30/24 20: Nucleated RBC % (auto) 0 % 05/30/24: Nucleated RBCs # 0.0 /100WBC 05/30/24 20: Sodium 137 mmol/L (136-145) 05/30/24 20: Potassium 3.7 mmol/L (3.5-5.1) 05/30/24 20: Chloride 102 mmol/L (98-107) 05/30/24 20: Carbon Dioxide 22 mmol/L (22-29) 05/30/24 20: Anion Gap 16.7 (5-19) 05/30/24 20: BUN 12 mg/dL (8-23) 05/30/24: Creatinine 1.0 mg/dL (0.7-1.2) 05/30/24 20:38 GFR Calculation 74.1 mL/min (90-130) L 05/30/24 20:38 Glucose 267 mg/dL (65-115) H 05/30/24 20:38 POC Glucose 243 mg/dL (70-110) H 05/30/24 20:39 Calculated Osmolality 293 mOsm/kg (285-295) 05/30/24 20:38 Lactic Acid 2.8 mmol/L (0.5-2.2) H 05/30/24 20:38 Lactic Acid (Sepsis) 1.6 mmol/L (0.5-2.2) 05/30/24 22:50 Calcium 9.0 mg/dL (8.5-10.5) 05/30/24 20:38 Ferritin 210 ng/mL (30-400) 05/30/24 20:38 Total Bilirubin 0.7 mg/dL (0.15-1.2) 05/30/24 20:38 AST 26 U/L (0-40) 05/30/24 20:38 ALT 17 U/L (0-41) 05/30/24 20:38 Alkaline Phosphatase 96 U/L (40-130) 05/30/24 20:38 C-Reactive Protein 31.5 mg/L (0.0-4.9) H 05/30/24 20:38 NT-Pro-B Natriuret Pep 5296 pg/mL (0-125) H 05/30/24 20:38 Total Protein 7.2 g/dL (6.6-8.7) 05/30/24 20:38 Albumin 3.8 g/dL (3.5-5.2) 05/30/24 20:38 Globulin 3.4 g/dL (1.3-4.6) 05/30/24 20:38 Procalcitonin 0.08 ng/mL (0-0.5) 05/30/24 20:38 Influenza A (PCR) Positive (Negative) 05/30/24 20:38 Influenza Type B (PCR) Negative (Negative) 05/30/24 20:38 RSV (PCR) Negative (Negative) 05/30/24 20:38 SARS-CoV-2 (PCR) Negative (Negative) 05/30/24 20:38 All radiology interpretation(s) finalized by discharge Discharge Plan Discharge Patient Disposition: Admitted As Inpatient Clinical Impression: Viral infection, Influenza, Delirium, Pneumonia Condition: Stable Coding Level of Care Code 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
--- NOTE | 2024-05-30 22:06 | CTR_ITS ---
PROCEDURE INFORMATION: Exam: CT Head Without Contrast Exam date and time: 05/30/2024 10:16 PM Age: 69 years old Clinical indication: Alteration of consciousness; Transient alteration of awareness; Additional info: AMS TECHNIQUE: Imaging protocol: Computed tomography of the head without contrast. Radiation optimization: All CT scans at this facility use at least one of these dose optimization techniques: automated exposure control; mA and/or kV adjustment per patient size (includes targeted exams where dose is matched to clinical indication); or iterative reconstruction. COMPARISON: No relevant prior studies available. RADIATION DOSE METRICS: Total DLP (mGy-cm): 2411.98 FINDINGS: Brain: No distinct evidence of acute intracranial hemorrhage no midline shift. Normal differentiation of jordan-white matter. No cerebellar tonsillar ectopia. Cerebral ventricles: Ventricles are normal in caliber. Paranasal sinuses: Visualized paranasal sinuses are clear. Mastoid air cells: Mastoid air cells are clear. Bones: No acute osseous findings. Soft tissues: Visualized superficial soft tissues are within normal limits. Other findings: Image quality is suboptimal at the level of the ventricles secondary to motion artifact. CT/CT head wo con* [id number] IMPRESSION: 1. Image quality is suboptimal at the level of the ventricles secondary to motion artifact. 2. Allowing for limitations, no distinct evidence of acute intracranial pathology.
--- NOTE | 2024-05-30 22:11 | ECG_ITS ---
[facility] Test Date: 2024-05-30 Pat Name: Roxane Mulligan Department: Room: 251 Gender: Male Unit Tender: : 1955 Requested By: Horace Vaca Order Number: [id number] Reading MD: HORACE MANE Measurements Intervals [place] Rate: 113 P: 0 DE: 0 QRS: 4 QRSD: 110 T: 32 QT: 386 QTc: 530 Interpretive Statements ATRIAL FIBRILLATION WITH RAPID VENTRICULAR RESPONSE SEPTAL MYOCARDIAL INFARCTION , PROBABLY OLD [40+ ms Q WAVE IN V1/V2] Compared to ECG 05/18/2021 08:29:30 Myocardial infarct finding now present Sinus bradycardia no longer present First degree AV block no longer present Prolonged QT interval no longer present Electronically Signed On 05-31-2024 18:16:46 CDT by HORACE MANE [id number]
[2024-05-30] MEDS: AZITHROMYCIN ADD-Vantage 500 MG in 0.9% NaCl ADD-Vantage 250 ML 250 MG IV (23:04)
[2024-05-30 23:15] LABS: Lactic Acid level (Lactate) 1.6 mmol/L (0.5-2.2)
[2024-05-30] MEDS: cefTRIAXone 1,000 mg SDV 1000 MG IVP (23:31)
[2024-05-30 23:45] VITALS: BP 116/74; PULSE 118; O2SAT 95
--- NOTE | 2024-05-30 23:55 | PM.HP ---
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 Brother is at the bedside providing most of the information stating that he has not seen [place] for last 2 months because he was spending some time with his ex- he returned on Friday and since then he has been sick, experiencing diarrhea has been extremely weak and lethargic, experiencing multiple bouts of dry cough, chills with possible fever, has been confused with short attention span however able to answer simple questions. Workup in the ER consistent with influenza A, head CT unremarkable, chest x-ray consistent with mild CHF exacerbation BNP 5000, ER physician gave him community acquired pneumonia treatment, I requested procalcitonin which is unremarkable, he is afebrile without leukocytosis I requested D-dimer which came back I requested CTA chest At the time of my evaluation patient is on room air saturating well, tachycardic, hemodynamically stable, Patient has a short attention span, he was able to recognize his sister at the bedside however was not able to tell me the name of his brother Verbally redirectable No signs of meningitis noted no focal deficits noted As per the brother he has history of hocm in the family Joe never had any chest pain or syncopal event Patient was tachycardic I requested bladder scan, patient was retaining 320 mL, requested Sheth catheter placement Review of Systems Const: Reports: fever(s) and chills Eyes: Denies: change in vision ENMT: Denies: throat pain Card: Denies: chest pain Resp: Reports: dyspnea and non-productive cough GI: Reports: nausea and diarrhea Medications/Allergies Home Medications ?Medication ?Instructions ?Recorded ?Confirmed ?Last Taken ?Type lisinopril 20 mg tablet 20 mg PO DAILY 10/05/19 02/17/24 05/17/21 History multivitamin 1 tab PO DAILY 10/05/19 02/17/24 05/17/21 History acetaminophen 500 mg tablet 500 mg PO Q6H PRN Pain 04/05/21 02/17/24 05/17/21 History gemfibrozil 600 mg tablet 600 mg PO BID 04/06/21 02/17/24 05/17/21 History gabapentin 300 mg tablet 300 mg PO TID 05/17/21 02/17/24 05/17/21 History insulin NPH-regular 70-30 U-100 55 unit SUBCUT BID 05/17/21 02/17/24 05/17/21 History insulin 100 unit/mL subcutaneous pen metoprolol tartrate 50 mg tablet 50 mg PO BID 05/17/21 02/17/24 05/18/21 History tramadol 50 mg tablet 50 mg PO Q6H PRN Pain 05/17/21 02/17/24 05/17/21 History hydrocodone 5 mg-acetaminophen 325 1 tab PO Q6H PRN pain 7 days #28 05/25/21 02/17/24 Unknown Rx mg tablet tabs Custom Molded Accomadative #1 ea 11/14/21 02/17/24 Unknown Rx Orthotics AFO to right #1 ea 04/02/22 02/17/24 Unknown Rx supinator to right #1 ea 04/02/22 02/17/24 Unknown Rx diabetic shoes with 3 sets of #1 ea 06/03/23 02/17/24 Unknown Rx custom inserts mupirocin 2 % topical ointment 1 applic topical TID #15 grams 01/20/24 02/17/24 Unknown Rx Allergies Allergy/AdvReac Type Severity Reaction Status Date / Time furosemide (From Lasix) Allergy Unknown unknown Verified 05/30/24 20:46 PFSH Acute PFSH: Medical History Diabetes mellitus Hammer toes, bilateral Amputation of fifth toe of left foot Surgical History Hx of amputation of foot Family History Mother Diabetes Hypertension Stroke Social History Smoking and tobacco/nicotine status: unknown if used tobacco/nicotine Alcohol intake: never Substance/Drug Use: never Current occupational status: disabled Vitals/I&O/Wt Last Vital Signs Temp 99.6 F 05/30/24 20:41 Pulse 109 H 05/30/24 20:41 Resp 18 05/30/24 20:41 BP 128/70 05/30/24 20:41 Pulse Ox 94 05/30/24 20:41 O2 Del Method Room Air 05/30/24 20:41 Weight last 48 hrs Weight 127.006 kg Physical Exam Narrative: Patient laying supine Short attention span No sign of meningitis No focal deficits noted Pupils are symmetrical Patient able to follow commands Was able to tell me his name, his sister's name however kept repeating his sister's name when asked about his brother's name was at the bedside Abdomen distended hypogastric region tenderness S1, S2 sinus tachycardia heart rate 120 Afebrile Bilateral breath sounds with rhonchi No active chest pain or shortness of breath Patient saturating well on room air Data 05/30/24 20:38 05/30/24 20:38 Micro: Microbiology 05/30/24 20:38 Blood Culture - Preliminary Blood SPECIMEN COLLECTED 05/30/24 20:38 Blood Culture - Preliminary Blood SPECIMEN COLLECTED A&P Assessment and plan (1) Viral infection: (2) Influenza: (3) Delirium: (4) Pneumonia: (5) Onychodystrophy: (6) Urinary retention: Plan Acute delirium with underlying dementia As per the brother patient is forgetful with short attention span & his confusion and attention span has gotten worse in the last few days Influenza A positive No signs of stroke or meningitis on clinical exam: Head CT unremarkable Received antibiotics in the ER for possible community-acquired pneumonia Procalcitonin unremarkable, no fever or leukocytosis: Hold off on continuation of antibiotics Rule out UTI: Requested UA Abnormal D-dimer: Requested CTA chest Mild acute CHF decompensation: EF unknown Abnormal BNP, clinically does not look fluid overloaded: Requested echo Considering history of hypertrophic cardiomyopathy, I would do gentle fluid maintenance rate overnight for 10 hours Urine retention: Could be a contributing factor towards delirium Place Sheth catheter Elevated lactic acid: Likely secondary to increased work of breathing Full code Sliding scale of insulin with diabetic diet DVT prophylaxis: Lovenox Patient currently lives with his brother PDMP PDMP Reviewed: Not Reviewed Attestations Medical Necessity Statement*: More than 2 midnights anticipated for management of delirium, influenza A, Coding Level of Care Code Acute Code for [facility] Diagnoses Viral infection B34.9 Influenza J11.1 Delirium R41.0 Pneumonia J18.9 Onychodystrophy L60.3 Urinary retention R33.9
[2024-05-31] VITALS (9 sets, daily range): BP systolic 107–157; BP diastolic 68–94; PULSE 77–108; RESP 12–20; TEMP 36.7–38; O2SAT 92–96; BMI 30.9
[2024-05-31 00:26] LABS: Ferritin 210 ng/mL (30-400)
[2024-05-31 00:32] LABS: Procalcitonin 0.08 ng/mL (0-0.5)
[2024-05-31 00:36] LABS: D Dimer 1.37 ug/mLFEU (0-0.59)
--- NOTE | 2024-05-31 01:20 | USCV_ITS ---
Roxane Mulligan Age: 69 Gender: M : 1955 Exam Date: 05/31/2024 09:05 Ordering Phys: Horace Vaca MD Technologist: SONNY Exam Location: [facility] [place] Indication: chf BP: 130 / 80 HR: 109 Rhythm: Sinus Technical Quality: Adequate MEASUREMENTS (Male / Female) Normal Values 2D ECHO LV Diastolic Diameter PLAX 5.1 cm 4.2 - 5.9 / 3.9 - 5.3 cm LV Systolic Diameter PLAX 3.9 cm IVS Diastolic Thickness 1.4 cm 0.6 - 1.0 / 0.6 - 0.9 cm IVS Systolic Thickness 1.7 cm LVPW Diastolic Thickness 1.3 cm 0.6 - 1.0 / 0.6 - 0.9 cm LVPW Systolic Thickness 1.4 cm LVOT Diameter 2.1 cm LV Ejection Fraction 2D Teich 46.2 % LV Ejection Fraction MOD 4C 50.5 % LV Ejection Fraction MOD 2C 56.7 % LV Ejection Fraction 2C AL 56.3 % LA Diameter 4.6 cm RA Systolic Volume 4C AL 49.4 ml RA Systolic Volume 4C MOD 45.2 ml LA Sys Volume AL 91.5 cm cubed LA Sys Volume Index AL 34.8 cm cubed/m squared Aorta at Sinotubular Diameter 3.3 cm IVC Diameter 2.1 cm M-MODE LA Ao Ratio MM 2.2 AV Cusp Separation MM 1.2 cm DOPPLER AV Peak Velocity 131.0 cm/s LVOT Peak Velocity 97.0 cm/s AV Area Cont Eq vti 2.5 cm squared AV Area Cont Eq pk 2.6 cm squared MV Peak Velocity 121.0 cm/s MV Area PHT 5.9 cm squared Mitral E to A Ratio 4.6 TR Peak Velocity 116.0 cm/s TR Peak Gradient 5.4 mmHg TV Peak E Velocity 118.0 cm/s PV Peak Velocity 111.0 cm/s FINDINGS Left Ventricle Normal LV size ejection fraction of 56%. Mild concentric left renal hypertrophy. Segmental wall motion analysis difficult because of the arrhythmia. No gross abnormalities noted. Right Ventricle Normal RV size and ejection fraction. Right Atrium Mildly increased right atrial size. Left Atrium Mildly increased left atrial size. Mitral Valve Mild mitral valve regurgitation. Aortic Valve Thickened aortic valve. Tricuspid Valve Trace tricuspid valve regurgitation. Pulmonic Valve Pulmonic valve not well visualized. Pericardium Normal pericardium without effusion. Aorta Normal ascending aorta dimension. IVC Normal IVC dimension with <50% respiratory change of the inferior vena cava. CONCLUSIONS Normal LV size ejection fraction of 56%. Mild concentric left renal hypertrophy. Segmental wall motion analysis difficult because of the arrhythmia. No gross abnormalities noted. Normal RV size and ejection fraction. Mild biatrial enlargement Mild mitral valve regurgitation. Thickened aortic valve. Trace tricuspid valve regurgitation. The PA pressure could not be cardiac because of the poor Doppler signals. RA pressure around 10 mmHg There is no pericardial effusion. There are no intracardiac masses. No similar previous studies are available for comparison Dr Tanmay Garzon MD FAC (Electronically Signed) Final Date: 31 May 2024 21:37 S
--- NOTE | 2024-05-31 01:26 | PC.NURSE ---
Patient is altered and orientated to self only.
--- NOTE | 2024-05-31 01:30 | PC.NURSE ---
Patient unable to answer social and suicide assessment questions at this time due to altered mental status.
[2024-05-31 01:38] LABS: Alcohol Level < 10 mg/dL (0-10)
[2024-05-31] MEDS: enoxaparin 40 mg/0.4 mL Syringe SUBCUT ×2 (01:46→23:18)
[2024-05-31] MEDS: sodium chloride 0.9% 1,000 ML 75 ML IV (01:46)
[2024-05-31 02:21] LABS: Bilirubin Urine 1+ (Negative); Blood Urine 2+ (Negative); Glucose Urine UA 2+ (Normal); Ketones Urine Trace (Negative); Leukocyte Esterase Urine Negative (Negative); Nitrate Urine Negative (Negative); Protein Urine 3+ (Negative); Specific Gravity, Urine 1.028 (1.005-1.030); Urine Appearance Clear (CLEAR); Urine Color Dark Yellow (Yellow)
[2024-05-31 02:26] LABS: Bacteria Urine None Seen /hpf; Hyaline Casts Urine 11.97 /lpf; RBC Urine 0-2 /hpf (0-2); Squamous Epithelial Cell Urine 0-5 /hpf (0-5); Universal Test for UA Present (0); WBC Urine 0-5 /hpf (0-5)
[2024-05-31 02:29] LABS: Amphetamines Screen Urine Negative (Negative); Barbiturates Screen Urine Negative (Negative); Benzodiazepines Screen Urine Negative (Negative); Cocaine Screen Urine Negative (Negative); Opiate Screen Urine Negative (Negative); PCP Screen Urine Negative (Negative); THC Screen Urine Negative (Negative)
[2024-05-31 02:34] LABS: Add Urine Culture? No; Mucus Urine 1+ /hpf; Sperm Urine 1+ /hpf
--- NOTE | 2024-05-31 03:13 | PC.RESP ---
patient refused vitals and breath sounds. No respiratory distress was noted at this time. Patient being non compliant at this time.
[2024-05-31] MEDS: acetaminophen 500 mg Tablet PO (03:47)
[2024-05-31 06:33] LABS: Glucose Point of Care 232 mg/dL (70-110)
--- NOTE | 2024-05-31 07:20 | P.PN_ITS ---
Subjective 2 Subjective: Febrile overnight Tachycardia Confusion Delirium secondary to flu CTA chest pending Sheth catheter placed secondary to urinary retention overnight Vitals/I&O/Wt Last Vital Signs Temp 100.4 F H 05/31/24 04:00 Pulse 104 H 05/31/24 04:00 Resp 17 05/31/24 04:00 BP 157/77 05/31/24 04:00 Pulse Ox 93 05/31/24 04:00 O2 Del Method Room Air 05/31/24 04:00 05/30/24 05/31/24 05/31/24 22:59 06:59 14:59 Intake Total 250 / 250 Output Total 300 / 300 Balance -50 / -50 Weight last 48 hrs Weight 112.491 kg Weight 112.491 kg Weight 127.006 kg Physical Exam 2 Narrative: Patient seems verbally redirectable No signs of meningitis or stroke Febrile with tachycardia Abdomen nontender Short attention span S1, S2 sinus tach nontender abdomen Lower extremity without any edema, wound of left toe noted Hypertension Septic focused exam: No skin mottling Patient is confused Peripheral pulses intact Tachycardia Febrile Adequate urine output Sepsis exam performed 05/31: 7:25 AM Urinary Catheter Management: Sheth: Cath Placed During This Visit: yes Reason for Continuing Indwelling Catheter: Acute Urinary Retention or Obstruction Urinary Catheter Date of Insertion: 05/31/24 Urinary Catheter Time of Insertion: 01:45 Data 05/30/24 20:38 05/30/24 20:38 Micro: Microbiology 05/30/24 20:38 Blood Culture - Preliminary Blood SPECIMEN COLLECTED 05/30/24 20:38 Blood Culture - Preliminary Blood SPECIMEN COLLECTED A&P Assessment and plan (1) Urinary retention: (2) Viral infection: (3) Influenza: (4) Delirium: (5) Pneumonia: (6) Sepsis: Plan Sepsis secondary to influenza A Now meet sepsis criteria with tachypnea tachycardia fever, which was not present on admit Will give him septic bolus, judicious use of septic bolus secondary to high BNP Patient has received antibiotics in the ER His procalcitonin is not high, hold off on antibiotics His tachycardia seems appropriate to the fever which is the reason for meeting SIRS criteria No signs of UTI, blood cultures taken Influenza A: Patient not requiring oxygen Abnormal D-dimer: CTA chest pending Delirium with underlying dementia Monitor closely for now, No active sign of meningitis or stroke Mild CHF decompensation: Echo requested Monitor closely for now Sheth catheter placed for urinary tension Full code Sliding-scale Lovenox for DVT prophylaxis Patient lives with his brother: May need physical therapy before discharge PDMP PDMP Reviewed: Not Reviewed Attestations 2 Medical Necessity Statement*: Continue medical management, Diagnoses Urinary retention R33.9 Viral infection B34.9 Influenza J11.1 Delirium R41.0 Pneumonia J18.9 Sepsis A41.9
[2024-05-31] MEDS: lisinopril 10 mg Tablet PO (07:43)
[2024-05-31] MEDS: insulin lispro 100 unit/1 mL SUBCUT ×3 (07:43→22:07)
[2024-05-31] MEDS: sennosides-docusate Tablet 1 TAB PO (07:43)
[2024-05-31] MEDS: sodium chloride 0.9% 1,000 ML 999 ML IV (07:44)
[2024-05-31 10:49] LABS: Basophils % 0.4 %; Eosinophils % 0.2 %; Hematocrit 41.5 % (37-53); Lymphocytes # 0.6 10^3/uL (0.8-4.8); Lymphocytes % 12.2 %; Mean Corpuscular HGB Conc 32.5 g/dL (30-55); Mean Corpuscular Hemoglobin 29.5 pg (27-33); Mean Corpuscular Volume 90.8 fl (82-101); Mean Platelet Volume 10.2 fL (7.4-10.4); Monocytes # 0.6 10^3/uL (0.2-0.9); Monocytes % 11.9 %; Neutrophils # 3.51 10^3/uL (1.8-7.7); Neutrophils % 74.9 %; Nucleated Red Blood Cells % 0 %; Platelet Count 179 10^3/cmm (157-399); Red Blood Count 4.57 10^6/uL (3.85-5.65); Red Cell Distribution Width 12.9 % (12.1-15.1); White Blood Count 4.69 10^3/uL (3.29-11.43)
[2024-05-31 11:03] LABS: Anion Gap 14.5 (5-19); Blood Urea Nitrogen 11 mg/dL (8-23); C Reactive Protein 48.4 mg/L (0.0-4.9); Calcium 8.3 mg/dL (8.5-10.5); Carbon Dioxide 22 mmol/L (22-29); Chloride 105 mmol/L (98-107); Creatinine Clr Calc Pharmacy 117.9591; Glomerular Filtration Rate 111.8 mL/min (90-130); Glucose 151 mg/dL (65-115); Magnesium 1.7 mg/dL (1.7-2.3); Osmolality Calculated 288 mOsm/kg (285-295); Phosphorus 2.4 mg/dL (2.5-4.5); Potassium 3.5 mmol/L (3.5-5.1); Sodium 138 mmol/L (136-145)
[2024-05-31 11:26] LABS: Glucose Point of Care 162 mg/dL (70-110)
--- NOTE | 2024-05-31 12:51 | PC.NURSE ---
This nurse as well as KRISS Love attempted to take pt down to CT for a Chest CTA, however, pt refused. This nurse asked pt why he was refusing and he stated that there is nothing wrong with his chest and it is not needed. This nurse educated pt on the reasonings the CTA was ordered, however, he still declined. Dr. Chappell notifed.
[2024-05-31 16:30] LABS: Glucose Point of Care 142 mg/dL (70-110)
[2024-05-31] MEDS: benzonatate 100 mg Capsule 200 MG PO (17:42)
[2024-05-31 21:53] LABS: Glucose Point of Care 199 mg/dL (70-110)
[2024-06-01 00:24] VITALS: BP 120/74; PULSE 74; RESP 19; TEMP 36.6; O2SAT 92
[2024-06-01 03:59] VITALS: BP 118/70; PULSE 72; RESP 18; TEMP 36.8; O2SAT 94
[2024-06-01] MEDS: acetaminophen 500 mg Tablet PO (06:11)
[2024-06-01 07:05] LABS: Glucose Point of Care 126 mg/dL (70-110)
[2024-06-01 07:10] LABS: Basophils % 0.4 %; Eosinophils % 0.4 %; Hematocrit 46.4 % (37-53); Lymphocytes # 1.1 10^3/uL (0.8-4.8); Lymphocytes % 24.4 %; Mean Corpuscular HGB Conc 32.5 g/dL (30-55); Mean Corpuscular Hemoglobin 30.3 pg (27-33); Mean Platelet Volume 10.4 fL (7.4-10.4); Monocytes # 0.4 10^3/uL (0.2-0.9); Monocytes % 9.5 %; Neutrophils # 2.92 10^3/uL (1.8-7.7); Neutrophils % 64.9 %; Nucleated Red Blood Cells % 0 %; Platelet Count 190 10^3/cmm (157-399); Red Blood Count 4.99 10^6/uL (3.85-5.65); Red Cell Distribution Width 13.1 % (12.1-15.1); White Blood Count 4.51 10^3/uL (3.29-11.43)
[2024-06-01 07:31] LABS: Blood Urea Nitrogen 8 mg/dL (8-23); Calcium 8.6 mg/dL (8.5-10.5); Carbon Dioxide 25 mmol/L (22-29); Chloride 101 mmol/L (98-107); Creatinine Clr Calc Pharmacy 117.9591; Glomerular Filtration Rate 111.8 mL/min (90-130); Glucose 96 mg/dL (65-115); Osmolality Calculated 284 mOsm/kg (285-295); Sodium 138 mmol/L (136-145)
[2024-06-01 07:37] LABS: Anion Gap 15.6 (5-19); Potassium 3.6 mmol/L (3.5-5.1)
[2024-06-01 07:41] VITALS: BP 145/97; PULSE 106; RESP 16; TEMP 36.7; O2SAT 94
[2024-06-01 09:32] VITALS: PULSE 120; RESP 16; O2SAT 96
[2024-06-01] MEDS: lisinopril 10 mg Tablet PO (09:33)
[2024-06-01] MEDS: sennosides-docusate Tablet 1 TAB PO (09:34)
--- NOTE | 2024-06-01 10:01 | PC.CHAP ---
Pastoral Care Encounter/Spiritual Assessment Type of Contact [] Declined section gang worker visit [] Patient/Family/Request visit [] Outpatient visit [] Follow-up visit [] Physician referral [] Code/Alert [] Routine visit [] Staff referral [] Actively dying [] Patient sleeping [] Family support [] [] Out of room [] Palliative care [] [] Receiving care in room [] Pre-surgical visit [] Trauma [] Long length of stay [] ICU visit [x] Other:Contact precautions. No visit. Relational/Emotional Strength [] Patient feels connected with others/family/visitors/staff [] Distress [] Loneliness/isolation [] Abandonment Spirituality of Patient [] Person of [place] [] Attends Ep[employer] of their [place] [] Believes in Prayer [] Reads Bible or Mu-Ism materials [] There are Spiritual issues to be addressed Violin Restorer Interventions [] Prayer [] Active listening [] Non-anxious presence [] Spiritual/emotional support [] Crisis/trauma care [] Spiritual counseling [] Bereavement support [] Provided bereavement packet [] Provided Bible/devotional materials [] Provided toy/stuffed animal, coloring book to patient or family member [] Provided Communion [] Anointing/[place] [] Salvation [] Completed spiritual assessment [] Other: Impact on Illness or Injury [] Angry [] Fearful [] Anxious [] Often cries [] Exhaustion [] Unable to work [] Unable to attend jehovah's witness [] Unable to walk/stand [] Unable to read [] Unable to drive [] Unable to eat/drink [] Unable to sleep [] Unable to be with family [] Patient intubated [] Other: Summary Time spent with patient
[2024-06-01 11:20] VITALS: BP 119/88; PULSE 108; RESP 16; TEMP 36.6; O2SAT 96
--- NOTE | 2024-06-01 11:40 | ECG_ITS ---
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 Measurements Intervals [place] Rate: 96 P: 0 GA: 0 QRS: -22 QRSD: 107 T: 51 QT: 395 QTc: 499 Interpretive Statements ATRIAL FIBRILLATION PROBABLE ANTEROLATERAL MYOCARDIAL INFARCTION , PROBABLY OLD [35 ms Q WAVE IN I/aVL/V3-V6] Compared to ECG 05/30/2024 22:11:18 No significant changes Electronically Signed On 06-01-2024 19:17:57 CDT by Tanmay Garzon M.D. [email or web address]
[2024-06-01 11:50] LABS: Glucose Point of Care 227 mg/dL (70-110)
[2024-06-01] MEDS: insulin lispro 100 unit/1 mL SUBCUT (11:55)
--- NOTE | 2024-06-01 11:57 | PM.DCS ---
Discharge Providers Date of Admission: 05/31/24 01:04 Date of Discharge: June 01, 2024 Attending Provider at Admission: Horace Vaca MD Attending Provider at Discharge: Silvana Chappell MD Primary Care Provider: Meena Ferrara DO Diagnoses at Discharge Discharge Diagnosis (1) Urinary retention: Status: Resolved (2) Viral infection: Status: Acute (3) Influenza: Status: Acute (4) Delirium: Status: Resolved (5) Pneumonia: Status: Acute (6) Sepsis: Status: Resolved Reason for Visit Reason for Visit: confusion, cough, congestion Hospital Course Hospital Course Patient was admitted for sepsis secondary to influenza A. He was not requiring oxygen. CTA chest was ordered however patient declined to have that done. Sheth catheter was placed initially since patient was altered when he came to the hospital however he was very upset about that and requested us for removal. He was able to void on his own. He was alert oriented x 3 the day after. Echo was also performed and reviewed. Patient requesting to go home. His mental status is back to baseline. Family present at bedside. Patient will be sent home on azithromycin Physical Exam Narrative: Alert oriented x 3 Afebrile No signs of meningitis or stroke Abdomen soft nontender Normal S1-S2 Extremities unremarkable, left toe wound noted. Vitals are stable Room air. Urinary Catheter Management: Sheth: Cath Placed During This Visit: yes, but has since been removed by the nurse Reason for Continuing Indwelling Catheter: Decision to DC Catheter Urinary Catheter Date of Insertion: 05/31/24 Urinary Catheter Time of Insertion: 01:45 Date Urinary Catheter Removed: 05/31/24 Time Urinary Catheter Discontinued: 10:51 Discharge Data Studies Completed and Pending Completed Studies During Hospitalization Category Date Time Status CT head wo con* [id number] Stat Cat Scan 05/30/24 22:06 Completed XR chest 1V portable [id number] Stat Exams 05/30/24 20:05 Completed CV. echo complete* [id number] Routine Ultrasound 05/31/24 01:20 Completed Pending at discharge Category Date Time Status Blood Culture Stat Lab 05/30/24 20:38 Results Hemoglobin A1C Stat Lab 06/01/24 11:55 Ordered Radiology Impressions Chest X-Ray 05/30/24 20:05 IMPRESSION: No acute findings. Head CT 05/30/24 22:06 IMPRESSION: 1. Image quality is suboptimal at the level of the ventricles secondary to motion artifact. 2. Allowing for limitations, no distinct evidence of acute intracranial pathology. Laboratory Results WBC 4.51 10^3/uL (3.29-11.43) 06/01/24 06:12 RBC 4.99 10^6/uL (3.85-5.65) 06/01/24 06:12 Hgb 15.10 g/dL (11.27-16.99) 06/01/24 06:12 Hct 46.4 % (37-53) 06/01/24 06:12 MCV 93.0 fl (82-101) 06/01/24 06:12 MCH 30.3 pg (27-33) 06/01/24 06:12 MCHC 32.5 g/dL (30-55) 06/01/24 06:12 RDW 13.1 % (12.1-15.1) 06/01/24 06:12 Plt Count 190 10^3/cmm (157-399) 06/01/24 06:12 MPV 10.4 fL (7.4-10.4) 06/01/24 06:12 Neut % (Auto) 64.9 % 06/01/24 06:12 Lymph % (Auto) 24.4 % 06/01/24 06:12 Mcminn % (Auto) 9.5 % 06/01/24 06:12 Eos % (Auto) 0.4 % 06/01/24 06:12 Baso % (Auto) 0.4 % 06/01/24 06:12 Neut # (Auto) 2.92 10^3/uL (1.8-7.7) 06/01/24 06:12 Lymph # (Auto) 1.1 10^3/uL (0.8-4.8) 06/01/24 06:12 Mcminn # (Auto) 0.4 10^3/uL (0.2-0.9) 06/01/24 06:12 Eos # (Auto) 0.0 10^3/uL (0.0-0.8) 06/01/24 06:12 Baso # (Auto) 0.0 10^3/uL (0.0-0.1) 06/01/24 06:12 Nucleated RBC % (auto) 0 % 06/01/24 06:12 Nucleated RBCs # 0.0 /100WBC 06/01/24 06:12 D-Dimer 1.37 ug/mLFEU (0-0.59) H 05/30/24 20:38 Sodium 138 mmol/L (136-145) 06/01/24 06:12 Potassium 3.6 mmol/L (3.5-5.1) 06/01/24 06:12 Chloride 101 mmol/L (98-107) 06/01/24 06:12 Carbon Dioxide 25 mmol/L (22-29) 06/01/24 06:12 Anion Gap 15.6 (5-19) 06/01/24 06:12 BUN 8 mg/dL (8-23) 06/01/24 06:12 Creatinine 0.7 mg/dL (0.7-1.2) 06/01/24 06:12 GFR Calculation 111.8 mL/min (90-130) 06/01/24 06:12 Glucose 96 mg/dL (65-115) 06/01/24 06:12 POC Glucose 227 mg/dL (70-110) H 06/01/24 11:22 Calculated Osmolality 284 mOsm/kg (285-295) L 06/01/24 06:12 Lactic Acid 2.8 mmol/L (0.5-2.2) H 05/30/24 20:38 Lactic Acid (Sepsis) 1.6 mmol/L (0.5-2.2) 05/30/24 22:50 Calcium 8.6 mg/dL (8.5-10.5) 06/01/24 06:12 Phosphorus 2.4 mg/dL (2.5-4.5) L 05/31/24 10:37 Magnesium 1.7 mg/dL (1.7-2.3) 05/31/24 10:37 Ferritin 210 ng/mL (30-400) 05/30/24 20:38 Total Bilirubin 0.7 mg/dL (0.15-1.2) 05/30/24 20:38 AST 26 U/L (0-40) 05/30/24 20:38 ALT 17 U/L (0-41) 05/30/24 20:38 Alkaline Phosphatase 96 U/L (40-130) 05/30/24 20:38 C-Reactive Protein 48.4 mg/L (0.0-4.9) H 05/31/24 10:37 NT-Pro-B Natriuret Pep 5296 pg/mL (0-125) H 05/30/24 20:38 Total Protein 7.2 g/dL (6.6-8.7) 05/30/24 20:38 Albumin 3.8 g/dL (3.5-5.2) 05/30/24 20:38 Globulin 3.4 g/dL (1.3-4.6) 05/30/24 20:38 Procalcitonin 0.08 ng/mL (0-0.5) 05/30/24 20:38 Urine Color Cancelled 05/31/24 01:50 Urine Color Dark yellow (Yellow) A 05/31/24 01:50 Urine Appearance Cancelled 05/31/24 01:50 Urine Appearance Clear (CLEAR) 05/31/24 01:50 Urine pH 5.0 (5-7) 05/31/24 01:50 Urine pH Cancelled 05/31/24 01:50 Ur Specific Sunray 1.028 (1.005-1.030) 05/31/24 01:50 Ur Specific Sunray Cancelled 05/31/24 01:50 Urine Protein 3+ (Negative) A 05/31/24 01:50 Urine Protein Cancelled 05/31/24 01:50 Urine Glucose (UA) 2+ (Normal) H 05/31/24 01:50 Urine Glucose (UA) Cancelled 05/31/24 01:50 Urine Ketones Cancelled 05/31/24 01:50 Urine Ketones Trace (Negative) 05/31/24 01:50 Urine Blood 2+ (Negative) A 05/31/24 01:50 Urine Blood Cancelled 05/31/24 01:50 Urine Nitrate Cancelled 05/31/24 01:50 Urine Nitrate Negative (Negative) 05/31/24 01:50 Urine Bilirubin 1+ (Negative) H 05/31/24 01:50 Urine Bilirubin Cancelled 05/31/24 01:50 Prot Sulfosalicylic Acd Cancelled 05/31/24 01:50 Urine Urobilinogen 1.0 mg/dL (Negative) 05/31/24 01:50 Urine Urobilinogen Cancelled 05/31/24 01:50 Ur Leukocyte Esterase Cancelled 05/31/24 01:50 Ur Leukocyte Esterase Negative (Negative) 05/31/24 01:50 Urine RBC 0-2 /hpf (0-2) 05/31/24 01:50 Urine RBC Cancelled 05/31/24 01:50 Urine WBC 0-5 /hpf (0-5) 05/31/24 01:50 Urine WBC Cancelled 05/31/24 01:50 Ur Squamous Epith Cells 0-5 /hpf (0-5) 05/31/24 01:50 Ur Squamous Epith Cells Cancelled 05/31/24 01:50 Ur Transition Epith Cell Cancelled 05/31/24 01:50 Ur Renal Epithelial Cell Cancelled 05/31/24 01:50 Calcium Oxalate Crystal Cancelled 05/31/24 01:50 Uric Acid Crystals Cancelled 05/31/24 01:50 Triple Phos Crystals Cancelled 05/31/24 01:50 Other Crystals Cancelled 05/31/24 01:50 Amorphous Sediment Cancelled 05/31/24 01:50 Amorphous Sediment Not Reportable 05/31/24 01:50 Urine Bacteria Cancelled 05/31/24 01:50 Urine Bacteria None seen /hpf (NONE) 05/31/24 01:50 Hyaline Casts 11.97 /lpf 05/31/24 01:50 Hyaline Casts Cancelled 05/31/24 01:50 Fine Granular Casts Cancelled 05/31/24 01:50 Coarse Granular Casts Cancelled 05/31/24 01:50 RBC Casts Cancelled 05/31/24 01:50 Other Casts Cancelled 05/31/24 01:50 Urine Mucus 1+ /hpf 05/31/24 01:50 Urine Mucus Cancelled 05/31/24 01:50 Urine Trichomonas Cancelled 05/31/24 01:50 Urine Yeast Cancelled 05/31/24 01:50 Urine Sperm 1+ /hpf 05/31/24 01:50 Urine Sperm Cancelled 05/31/24 01:50 Ur Oval Fat Bodies Cancelled 05/31/24 01:50 Urine Opiates Screen Negative ng/mL (Negative) 05/31/24 01:50 Ur Barbiturates Screen Negative ng/mL (Negative) 05/31/24 01:50 Ur Phencyclidine Scrn Negative ng/mL (Negative) 05/31/24 01:50 Ur Amphetamines Screen Negative ng/mL (Negative) 05/31/24 01:50 U Benzodiazepines Scrn Negative ng/mL (Negative) 05/31/24 01:50 Urine Cocaine Screen Negative ng/mL (Negative) 05/31/24 01:50 U Marijuana (THC) Screen Negative ng/mL (Negative) 05/31/24 01:50 Ethyl Alcohol < 10 mg/dL (0-10) 05/30/24 20:38 Influenza A (PCR) Positive (Negative) 05/30/24 20:38 Influenza Type B (PCR) Negative (Negative) 05/30/24 20:38 RSV (PCR) Negative (Negative) 05/30/24 20:38 SARS-CoV-2 (PCR) Negative (Negative) 05/30/24 20:38 Vitals Last Vital Signs Temp 97.9 F 06/01/24 11:20 Pulse 108 H 06/01/24 11:20 Resp 16 06/01/24 11:20 BP 119/88 06/01/24 11:20 Pulse Ox 96 06/01/24 11:20 O2 Del Method Room Air 06/01/24 11:20 Discharge Plan Discharge Patient Disposition: Home Condition: Stable Prescriptions: New azithromycin [Zithromax Z-Leodan] 250 mg tablet See Rx Instructions .ROUTE .COMPLEX Qty: 6 0RF Rx Instructions: For 250 mg dose pack: take 500 mg today (day 1), then 250 mg for 4 days (days 2-5) metformin 500 mg tablet 500 mg PO BID Qty: 30 0RF Continued acetaminophen 500 mg Tablet 500 mg PO Q6H PRN (Reason: Pain) gemfibrozil 600 mg tablet 600 mg PO BID tramadol 50 mg Tablet 50 mg PO Q6H PRN (Reason: Pain) Changed lisinopril 20 mg tablet 10 mg PO DAILY Qty: 30 0RF metoprolol tartrate 50 mg Tablet 25 mg PO BID Qty: 30 0RF Discontinued hydrocodone-acetaminophen 5-325 mg tablet 1 tab PO Q6H PRN (Reason: pain) 7 Days Qty: 28 0RF insulin NPH and regular human 100 unit/mL (70-30) Insulin Pen 55 unit SUBCUT BID torsemide 10 mg tablet 10 mg PO BID gabapentin 300 mg capsule 300 mg PO TID tadalafil 20 mg tablet 20 mg PO PRN Discharge Orders: Discharge Order (Routine); Ordered 06/01/24 Ordered By: Silvana Chappell Referrals: Meena Ferrara DO [Primary Care Provider] - 06/03/24 1:45 pm Discharge Diet: Cardiac and Diabetic Discharge Activity: Resume usual activity Patient Instructions: Azithromycin (By mouth), Metformin (By mouth), Opioid Safety, Pneumonia Stoplight Discharge Attestations Time Spent in Discharge Care*: less than 30 min Quality Metrics Clinical Quality Measures [ No reported AMI, CVA or VTE this stay] Coding Level of Care Code Acute Code for Chg Fwd Diagnoses Urinary retention R33.9 Viral infection B34.9 Influenza J11.1 Delirium R41.0 Pneumonia J18.9 Sepsis A41.9
[2024-06-01 12:21] LABS: Estmated Average Glucose 148; Hemoglobin A1C 6.8 % (4.0-6.0)
--- NOTE | 2024-06-01 16:30 | PC.NURSE ---
Discussed discharge, new medications, continued medications and discontinued medications with patient. Discussed follow up appointments. All questions answered and patient verbalized understanding.
[2024-06-01 17:19] VITALS: BP 119/88; PULSE 108; RESP 16; TEMP 36.6; O2SAT 96
== END 2024-06-01 15:37 | disposition home or self-care (01) | DRG 871 ==
LOC: ER 23:56 → MEDSURG 05-31 01:05
PROVIDERS: Emergency Medicine; Admitting Provider Internal Medicine; Emergency Provider Family Medicine; PCP Family Medicine; Visit Provider Internal Medicine
DX: A41.89 Other specified sepsis (principal); I50.33 Acute on chronic diastolic (congestive) heart failure; J18.9 Pneumonia, unspecified organism; I42.9 Cardiomyopathy, unspecified; F05 Delirium due to known physiological condition; J10.1 Influenza due to other identified influenza virus with other respiratory manifestations; R33.9 Retention of urine, unspecified; E11.9 Type 2 diabetes mellitus without complications; M20.40 Other hammer toe(s) (acquired), unspecified foot; F03.90 Unspecified dementia, unspecified severity, without behavioral disturbance, psychotic disturbance, mood disturbance, and anxiety; L60.3 Nail dystrophy; I11.0 Hypertensive heart disease with heart failure; Z79.891 Long term (current) use of opiate analgesic; Z79.4 Long term (current) use of insulin; Z91.81 History of falling; Z89.422 Acquired absence of other left toe(s); Z83.3 Family history of diabetes mellitus; Z82.3 Family history of stroke; Z82.49 Family history of ischemic heart disease and other diseases of the circulatory system
CPT/HCPCS: 36415; 36416; 51702; 51798; 70450; 71045; 80048; 80053; 80306; 80307; 81001; 82728; 82962; 83036; 83605; 83735; 83880; 84100; 84145; 85025; 85378; 86140; 87040; 87637; 93005; 93306; 94664; 96365; 96366; 96367; 96372; 96375; 97161; 97167; 99285; J0456; J0696; J1650; J1815; J7030; J7050; J9999

== ENCOUNTER → 2024-09-08 10:56 | Outpatient (BNVA) | payer MEDICARE, SELFPAY | PROVIDERS: PCP Family Medicine; Visit Provider Podiatrist Foot & Ankle Surgery | DX: E11.42 Type 2 diabetes mellitus with diabetic polyneuropathy (principal); L60.3 Nail dystrophy; L84 Corns and callosities; Z89.422 Acquired absence of other left toe(s); Z79.84 Long term (current) use of oral hypoglycemic drugs | CPT/HCPCS: 11056; 11721; 99213 ==

== ENCOUNTER → 2024-12-07 10:36 | Outpatient (BNVA) | payer MEDICARE, SELFPAY | PROVIDERS: PCP Family Medicine; Visit Provider Podiatrist Foot & Ankle Surgery | DX: E11.42 Type 2 diabetes mellitus with diabetic polyneuropathy (principal); L60.3 Nail dystrophy; Z79.84 Long term (current) use of oral hypoglycemic drugs; Z89.422 Acquired absence of other left toe(s) | CPT/HCPCS: 99213 ==

== ENCOUNTER 2025-03-15 11:26 | Outpatient (CLI) | payer MEDICARE, SELFPAY | END 2025-03-15 11:27 | disposition home or self-care (01) | LOC: SPT 11:27 | PROVIDERS: PCP Family Medicine; Visit Provider Podiatrist Foot & Ankle Surgery | DX: Z46.89 Encounter for fitting and adjustment of other specified devices (principal); S91.302D Unspecified open wound, left foot, subsequent encounter; X58.XXXD Exposure to other specified factors, subsequent encounter | CPT/HCPCS: L4361 ==